=== PATIENT | male | born 1970 | race Caucasian/White ===

== ENCOUNTER 2019-09-14 00:03 | Emergency (ER) | payer BC, OTHER ==
[2019-09-14] MEDS ORDERED: EPINEPHrine 1 MG/10 ML Abboject SYRINGE ONE (09:30)
[2019-09-14 11:58] LABS: SARS-CoV-2 MS2 Positive; SARS-CoV-2 N Gene Negative; SARS-CoV-2 S Gene Negative; SARS-CoV-2 orf1ab Negative
== END 2019-09-14 00:11 | disposition expired ==
LOC: ERS 00:03
DX: I46.9 Cardiac arrest, cause unspecified (principal); K74.60 Unspecified cirrhosis of liver; F17.210 Nicotine dependence, cigarettes, uncomplicated
CPT/HCPCS: 87635; 92950; 96374; J0171; U0003